=== PATIENT | male | born 1980 | race Caucasian/White ===

== ENCOUNTER 2020-08-31 07:34 | Emergency (ER) | payer OTHER ==
[2020-08-31 08:16] LABS: BASOPHIL 1.1 % (0-2); EOSINOPHIL 4.8 % (0-5); HCT 44.3 % (42.0-52.0); HGB 14.7 g/dl (13.2-18.0); LYMPHOCYTE 21.3 % (15-48); MCH 31.3 pg (25.0-31.0); MCHC 33.2 g/dL (32.0-36.0); MCV 94.3 fL (78.0-100.0); MONOCYTE 7.5 % (0-12); MPV 9.2 fL (6.0-9.5); NEUTROPHIL 64.4 % (41-80); NRBC 0; PLT 248 K/uL (150-400); RDW 12.9 % (11.5-14.0); WBC 7.6 K/uL (4.0-10.5)
[2020-08-31 08:23] LABS: BILIRUBIN NEGATIVE (NEGATIVE); BLOOD NEGATIVE Ery/uL (NEGATIVE); CLARITY CLEAR (CLEAR); COLOR YELLOW (YELLOW); GLUCOSE (U) NORMAL (NORMAL); LEUKOCYTES NEGATIVE Leu/uL (NEGATIVE); NITRITE NEGATIVE (NEGATIVE); PROTEIN NEGATIVE (NEGATIVE); SPECIFIC GRAVITY 1.015 (1.001-1.030); UROBILINOGEN 0.2 mg/dL (0.2-1.0); pH 7.5 (5.0-9.0)
[2020-08-31 08:28] LABS: ECSTASY (MDMA) NEGATIVE (NEGATIVE); MARIJUANA (THC) NEGATIVE (NEGATIVE); METHADONE NEGATIVE (NEGATIVE); OPIATES NEGATIVE (NEGATIVE)
[2020-08-31 08:29] LABS: AMPHETAMINES NEGATIVE (NEGATIVE); BARBITURATES NEGATIVE (NEGATIVE); OXYCODONE NEGATIVE (NEGATIVE)
[2020-08-31 08:49] LABS: ALBUMIN 4.1 g/dL (3.4-5.0); BILIRUBIN - TOTAL 0.4 mg/dL (0.2-1.0); BUN/CREAT RATIO (CALC) 10.3 RATIO; CREATININE 0.97 mg/dL (0.67-1.17); GLOBULIN (CALCULATION) 3.4 g/dL; POTASSIUM 4.2 mmol/L (3.5-5.1); TOTAL PROTEIN 7.5 g/dL (6.4-8.2)
== END 2020-08-31 13:46 | disposition other institution (70) ==
LOC: FER 07:34
PROVIDERS: Emergency Medicine
DX: R45.851 Suicidal ideations (principal); F17.210 Nicotine dependence, cigarettes, uncomplicated; F32.9 Major depressive disorder, single episode, unspecified; Z20.822 Contact with and (suspected) exposure to COVID-19; Z79.899 Other long term (current) drug therapy
CPT/HCPCS: 36415; 80053; 80305; 81003; 85025; 99285; G0480; U0002